=== PATIENT | female | born 1995 | race Caucasian/White ===

== ENCOUNTER 2018-05-31 11:56 | Inpatient (IN) | payer BC, SELFPAY ==
[~2018-05-31] VITALS: Ht 157.5 cm; Wt 94.3 kg
== END 2018-06-02 21:00 | disposition home or self-care (01) | DRG 951 ==
LOC: SPU 06-02 19:33
PROVIDERS: ADMIT Obstetrics & Gynecology; ATTEND Obstetrics & Gynecology
DX: Z34.83 Encounter for supervision of other normal pregnancy, third trimester (principal)
CPT/HCPCS: 81002-TC

== ENCOUNTER 2018-06-05 20:42 | Inpatient (IN) | payer BC ==
[~2018-06-05] VITALS: Ht 157.5 cm; Wt 103.0 kg
[2018-06-05] MEDS ORDERED: OXYTOCIN/0.9 % SODIUM CHLORIDE 1,000 ML IV SCH (21:40)
[2018-06-05] MEDS ORDERED: TERBUTALINE SULFATE 1 MG/ML VIAL SUBCUT ONE (21:45)
[2018-06-05] MEDS ORDERED: NALBUPHINE HCL 10 MG/ML AMP IVP PRN (21:45)
[2018-06-05] MEDS ORDERED: NALBUPHINE HCL 10 MG/ML AMP IM PRN (21:45)
[2018-06-05 21:56] VITALS: BP_SYST 135
[2018-06-05 22:37] LABS: BASOPHILS % (AUTO) 0.3 % (0.0-2.0); EOSINOPHILS # (AUTO) 0.1 K/uL (0.0-0.4); HEMATOCRIT 37.7 % (36-48); HEMOGLOBIN 12.6 g/dL (12.0-16.0); LYMPHOCYTES % (AUTO) 21.2 % (20.5-51.5); MEAN CORPUSCULAR HEMOGLOBIN 31 pg (27-31); MEAN CORPUSCULAR HGB CONC 34 % (32-36); MEAN CORPUSCULAR VOLUME 91 fL (79.0-98.0); MONOCYTES # (AUTO) 0.6 K/uL (0.0-1.0); MONOCYTES % (AUTO) 6.2 % (1.7-9.3); NEUTROPHILS # (AUTO) 6.9 K/uL (1.8-7.7); NEUTROPHILS % (AUTO) 71.3 % (40.0-70.0); PLATELET COUNT (AUTO) 226 K/uL (130-430); RED BLOOD CELL COUNT(AUTO) 4.15 MIL/uL (4.2-6.2); RED CELL DISTRIBUTION WIDTH 14.1 % (9.0-15.0); WHITE BLOOD COUNT (AUTO) 9.6 K/uL (4.8-10.8)
[2018-06-05] MEDS: MISOPROSTOL 100 MCG TABLET (CYTOTEC) PO PRN (23:00)
[2018-06-05] MEDS: LR 1,000 ML IV SCH (23:01)
[2018-06-06] MEDS: MISOPROSTOL 100 MCG TABLET (CYTOTEC) PO PRN (03:19)
[2018-06-06] MEDS: LR 1,000 ML IV SCH (05:40)
[2018-06-06] MEDS ORDERED: fentaNYL CITRATE/PF 100 MCG/2 ML AMP ONE ×2 (05:57→13:15)
[2018-06-06] MEDS ORDERED: ROPIVACAINE 0.2% 100 ML ONE ×2 (05:58→13:15)
[2018-06-06] MEDS ORDERED: LR 500 ML IV ONE (08:10)
[2018-06-06] MEDS ORDERED: FENT2mCg/mL-ROPIVA0.2%/NS EPID 100 ML EP SCH (08:15)
[2018-06-06] MEDS ORDERED: OXYTOCIN/0.9 % SODIUM CHLORIDE 1,000 ML IV ONE (16:12)
[2018-06-06] MEDS ORDERED: DIPH-TET-PERTUS Vaccine 0.5 ML VIAL (ADACEL) I.M. PRN (16:15)
[2018-06-06] MEDS ORDERED: SENNOSIDES/DOCUSATE SODIUM 1 TAB TABLET(SENOKOT-S) PO PRN (16:15)
[2018-06-06] MEDS: IBUPROFEN 600 MG TABLET PO PRN ×2 (16:41→22:33)
[2018-06-06] MEDS ORDERED: MINERAL OIL 30 ML UDC ONE (18:15)
[2018-06-07] MEDS: IBUPROFEN 600 MG TABLET PO PRN ×4 (05:13→22:31)
[2018-06-07] MEDS: DOCUSATE SODIUM 100 MG CAPSULE PO PRN ×2 (06:11→10:23)
[2018-06-07 07:04] LABS: BASOPHILS # (AUTO) 0.1 K/uL (0.0-0.2); BASOPHILS % (AUTO) 0.6 % (0.0-2.0); EOSINOPHILS # (AUTO) 0.1 K/uL (0.0-0.4); EOSINOPHILS % (AUTO) 0.9 % (0.0-4.0); HEMATOCRIT 32.5 % (36-48); HEMOGLOBIN 10.9 g/dL (12.0-16.0); LYMPHOCYTES # (AUTO) 2.1 K/uL (1.0-5.5); LYMPHOCYTES % (AUTO) 14.9 % (20.5-51.5); MEAN CORPUSCULAR HEMOGLOBIN 30 pg (27-31); MEAN CORPUSCULAR HGB CONC 34 % (32-36); MEAN CORPUSCULAR VOLUME 91 fL (79.0-98.0); MONOCYTES # (AUTO) 0.8 K/uL (0.0-1.0); MONOCYTES % (AUTO) 5.5 % (1.7-9.3); NEUTROPHILS # (AUTO) 11.2 K/uL (1.8-7.7); NEUTROPHILS % (AUTO) 78.1 % (40.0-70.0); PLATELET COUNT (AUTO) 203 K/uL (130-430); RED BLOOD CELL COUNT(AUTO) 3.59 MIL/uL (4.2-6.2); RED CELL DISTRIBUTION WIDTH 14.1 % (9.0-15.0); WHITE BLOOD COUNT (AUTO) 14.3 K/uL (4.8-10.8)
--- NOTE | 2018-06-07 12:36 | NUR ---
Dietitian Recommendations * Recommend continuing regular diet per LP, RD Please refer to Nutrition Assessment for details.
[2018-06-08] MEDS: IBUPROFEN 600 MG TABLET PO PRN (05:58)
[2018-06-08] MEDS ORDERED: HYDROcodone/ACETAMIN 5-325 MG TAB (NORCO/ VICODIN) PO PRN (09:45)
[2018-06-08] MEDS ORDERED: OXYCODONE/ACETAMINOPHEN 5-325 TABLET PO PRN ×2 (09:45)
[2018-06-08] MEDS: DOCUSATE SODIUM 100 MG CAPSULE PO PRN (10:07)
== END 2018-06-08 11:45 | disposition home or self-care (01) | DRG 807 ==
LOC: SPU 20:42
PROVIDERS: ADMIT Obstetrics & Gynecology; ATTEND Obstetrics & Gynecology
PROC: 10E0XZZ Delivery of Products of Conception, External Approach (ICD-10-PCS; principal; 2018-06-06)
PROC: 3E0P7VZ Introduction of Hormone into Female Reproductive, Via Natural or Artificial Opening (ICD-10-PCS; 2018-06-06)
PROC: 3E0R3BZ Introduction of Anesthetic Agent into Spinal Canal, Percutaneous Approach (ICD-10-PCS; 2018-06-06)
PROC: 00HU33Z Insertion of Infusion Device into Spinal Canal, Percutaneous Approach (ICD-10-PCS; 2018-06-06)
DX: O80 Encounter for full-term uncomplicated delivery (principal); Z37.0 Single live birth; Z3A.40 40 weeks gestation of pregnancy
CPT/HCPCS: 36415; 81002-TC; 85025; 86592; 86886; 86900; 86901; J2590; J2795; J3010